=== PATIENT | female | born 1945 | race Caucasian/White ===

== ENCOUNTER 2017-02-23 09:55 | Inpatient (IN) ==
[2017-02-23] MEDS ORDERED: Ibuprofen 200 MG TABLET PO PRN (15:45)
[2017-02-23] MEDS ORDERED: *HR* OxyCODONE Immed Rel 5 MG TABLET PO PRN (15:45)
[2017-02-23] MEDS: *HR* OxyCODONE Immed Rel 5 MG TABLET PO PRN (22:20)
[2017-02-23] MEDS: Ibuprofen 200 MG TABLET PO SCH (22:27)
[2017-02-24 00:16] LABS: Bilirubin,Urine Negative (Negative); Blood,Urine Trace-intact (Negative); Clarity,Urine Clear (Clear); Color,Urine Yellow (Yellow); Glucose,Urine (UA) Normal (Normal); Ketones,Urine Trace mg/dL (Negative); Leukocyte Esterase,Urine Negative (Negative); Nitrite,Urine Negative (Negative); PH,Urine 7.5 pH Units (5.0-8.0); Protein,Urine Negative (Neg-Trace); Specific Gravity,Urine 1.015 (1.010-1.025); Urobilinogen,Urine Normal (Normal)
[2017-02-24 00:26] LABS: RBC,Urine 0-3 per hpf (0-3); Squamous Epithelial Cell,Urine Few per lpf (None-Few); WBC,Urine 0-3 per hpf (0-3)
[2017-02-24 00:27] LABS: Bacteria,Urine Few per hpf (None-Few); Yeast,Urine Many per hpf (None Seen)
[2017-02-24] MEDS: Ibuprofen 200 MG TABLET PO SCH ×3 (00:53→09:55)
[2017-02-24 05:29] LABS: Basophils # 0.1 K/mcL (0.0-0.2); Basophils % 0.5 %; Eosinophils # 0.2 K/mcL (0.0-0.6); Eosinophils % 2.3 %; Hematocrit 31.3 % (35.3-44.9); Hemoglobin 10.7 g/dL (11.5-15.4); Immature Granulocytes % 2.9 % (0-4); Lymphocytes # 1.4 K/mcL (0.6-4.6); Lymphocytes % 13.6 %; Mean Corpuscular HGB Conc 34.2 g/dL (31.6-35.5); Mean Corpuscular Hemoglobin 30.8 pg (28.0-33.3); Mean Corpuscular Volume 90.2 fL (83.0-100.0); Mean Platelet Volume 9.9 fL (9.4-12.4); Monocytes # 1.7 K/mcL (0.0-1.3); Monocytes % 15.6 %; Neutrophils # 6.9 K/mcL (1.6-8.9); Nucleated Red Blood Cells 0.3 /100 WBC (0); Platelet Count 256 K/mcL (140-400); Red Blood Count 3.47 M/mcL (3.82-4.97); Red Cell Distribution Width 13.4 % (11.5-14.5); Segmented Neutrophils % 65.1 %
[2017-02-24 05:42] LABS: BUN/Creatinine Ratio 13 (6-26); Blood Urea Nitrogen 7 mg/dL (7-20); Carbon Dioxide 22 mEq/L (19-29); Chloride 102 mEq/L (98-109); Glucose 128 mg/dL (70-99); Osmolality,Calculated 282 (280-300); Potassium 3.8 mEq/L (3.5-4.5); Sodium 136 mEq/L (136-145); eGFR For African Americans > 60 (> 60); eGFR For Non-African Americans > 60 (> 60)
[2017-02-24] MEDS: *HR* OxyCODONE Immed Rel 5 MG TABLET PO PRN ×3 (06:03→17:34)
[2017-02-24] MEDS: Multivit/Ca/Min/Fe/FA 1 TAB TABLET PO SCH (09:55)
[2017-02-24] MEDS: Aspirin Enteric Coated 325 MG Tablet PO SCH (09:55)
--- NOTE | 2017-02-24 11:23 | Internal Med History&Physical ---
Date of Encounter: 02/24/17 Time of Encounter: 11:18 Assessment and Plan (1) Acute blood loss anemia Current visit: Yes Status: Acute H/H is stable . pt states that she had hx of GERD as well and had EGD will need to review records Avoid NSAID at the present time Add PPI (2) Status post total knee replacement, left Current visit: Yes Status: Acute stable Wound is healing well . Continue present pain Pain control (3) Arthritis of knee, left Current visit: No Status: Chronic stable Pain control as needed (4) HLD (hyperlipidemia) Current visit: No Status: Chronic Stable Qualifiers: Hyperlipidemia type: pure hypercholesterolemia Qualified Code(s): E78.00 - Pure hypercholesterolemia, unspecified; E78.0 - Pure hypercholesterolemia (5) HTN (hypertension) Current visit: No Status: Chronic stable no new change Continue present meds Qualifiers: Hypertension type: essential hypertension Qualified Code(s): I10 - Essential (primary) hypertension (6) Thyroid disease Current visit: No Status: Chronic TSH ordered stable (7) Urinary obstruction Current visit: Yes Status: Acute Pt has large post void urine as she was complaining of pain in her lower abdomen . Intermittent cath was done . There was some difficulty per nursing staff and they had to use a small size catheter. Apparently she had similar difficulty at [facility] as well . Will conitnue to follow .She might have stricture ,in addition to neurogencity due to opoid use . Will follow and if needed refer to urology for further assessment Internal Medicine - H&P: HPI Chief complaint: knee replacement left side Admitted From: Hospital to Hospital Transfer ([facility]) History of present illness: Ms. Acuña is a 72 year old female with significant hx of HTN Hypothyroid DJD admitted to rehab for therapy after left knee replacement . her surgery was complicated with nausea and vomiting and anemia which was related to surgery. Pt states that she had an EGD as well . Denies any complain of voitng or nausea at the present time . She denies any fever or chill .She has been complaining of pain lower abdomen. which has been present since surgery . She is having difficulty in emptying her bladder . No dysueria , blood in urine NO diarrhea or blood in stool Denies any chest pain , SOB palpitation or orthopnea .Her pain is reasonable well controlled. No complains of any focal weakness. Past Med Surg Social Fam HX - Past Medical History Medical history: arthritis, hyperlipidemia, hypertension, thyroid disease Psychiatric history: no psych history - Social History Smoking Status: Never smoker Smokeless Tobacco Status: No Alcohol use: none Drug use: none Internal Medicine - H&P: Meds Aspirin Enteric Coated [Aspirin EC] 325 mg PO DAILY #21 tablet. 02/12/17 [Rx] Ibuprofen [Motrin] 200 mg PO Q4-6H PRN 02/15/17 [History] Levothyroxine Sodium [Levoxyl] 50 mcg PO 0630 02/15/17 [History] Lisinopril [Zestril] 10 mg PO DAILY 02/15/17 [History] Lovastatin [Mevacor] 20 mg PO DAILY 02/15/17 [History] Mv-Mn/FA/Vit K/Lycop/Lut/Coq10 [Daily Multivitamin Capsule] 1 tab PO DAILY 02/15 [History] OxyCODONE Immed Rel [Roxicodone 5 MG] 5 mg PO Q6HR PRN 02/23/17 [History] 3 Allergy/AdvReac Type Severity Reaction Status Date / Time tramadol Allergy Nausea Verified 02/15/17 11:41 All Systems PM: A 10-system review of systems was performed and is negative for pertinent findings except as documented above in the HPI. - Constitutional Constitutional: no anorexia, no chills, no excessive sweating, no fever(s), no falls, no lethargy, no malaise, no night sweats - EENT Eyes: no diplopia, no discharge, no dry eye, no loss of vision, no pain, no photophobia, no seeing flashes Ears: no ear discharge, no ear pain Nose, mouth and throat: no bleeding gums, no dry mouth, no dysphagia, no epistaxis, no mouth lesions, no mouth pain, no post-nasal drip, no sinus pain, no sinus pressure, no sore throat - Breasts Breasts: no mass, no pain - Cardiovascular Cardiovascular ROS IM: no chest pain, no claudication, no diaphoresis, no dyspnea, no dyspnea on exertion, no lightheadedness, no orthopnea, no palpitations, no paroxysmal nocturnal dyspnea, no syncope - Respiratory Respiratory: no dyspnea, no hemoptysis, no dyspnea on exertion, no wheezing, no snoring, no pain on inspiration, no chest congestion, no excessive phlegm production, no change in phlegm color, no pain with cough - Gastrointestinal Gastrointestinal: heartburn (occasional ), no belching, no bloating, no change in bowel habits, no change in stool character, no coffee ground emesis, no constipation, no cramping, no diarrhea, no dyspepsia, no hematemesis, no loose stools - Genitourinary Genitourinary: post void dribbling, urinary frequency, urinary hesitancy, urinary urgency, no nocturia Additional comments: not able to empty bladder completely Menstruation: post hysterectomy - Musculoskeletal Musculoskeletal ROS IM: arthralgias, no back pain, no joint swelling, no muscle weakness, no myalgias, no numbness, no stiffness - Neurological Neurological ROS: no burning sensations, no confusion, no convulsions, no dizziness, no focal weakness, no frequent falls, no headache(s), no numbness, no restless legs - Psychiatric Psychiatric: no hallucinations, no homicidal ideation, no suicidal ideation - Constitutional Vitals: Temp Pulse Resp BP Pulse Ox 98.2 F 85 16 115/72 94 02/24/17 10:49 02/24/17 10:49 02/24/17 10:49 02/24/17 10:49 02/24/17 10:49 General appearance: Present: cooperative, A&O X 3, pleasant, no acute distress. Absent: severe distress - Head Head exam: Present: atraumatic - Eye Eye exam: Present: EOMI, PERRL. Absent: periorbital swelling, scleral icterus, conjuntiva pink - ENT ENT exam: Present: mucous membranes moist - Neck Neck exam general surgery: Present: full ROM, supple. Absent: tenderness, nuchal rigidity - Respiratory Respiratory exam: Present: CTAB. Absent: chest wall tenderness, decreased breath sounds, respiratory distress, rhonchi, stridor, wheezes, tachypnea - Cardiovascular Cardiovascular exam: Present: RRR. Absent: diastolic murmur, distant heart sounds, gallop, irregular rhythm, JVD Additional comments: no mummer appreciated - GI/Abdominal GI/Abdominal exam: Present: normal bowel sounds, soft, tenderness. Absent: diminished bowel sounds, guarding, hernia, pulsatile mass, rebound, rigid Additional comments: lower abdomen mild , no rebound BS ++ - Rectal Rectal exam: Present: deferred - Extremities Exam Extremities exam: Present: pedal edema. Absent: tenderness, warm Additional comments: + pitting on the left side otherwise normal . Left is surgical site - Incison Incision: Present: clean and dry - Back Exam Back exam: Present: normal inspection. Absent: CVA tenderness (L), CVA tenderness (R), muscle spasm, tenderness, vertebral tenderness - Neurological Exam Neurological exam: Present: alert, CN II-XII intact, oriented X3, no focal deficits, strengths equal and symetr throughout. Absent: facial droop, speech deficit - Psychiatric Psychiatric exam: Present: normal affect, normal mood Internal Med - H&P Results - Labs CBC & Chem 7: 02/24/17 05:00 02/24/17 05:00 Labs: Short CBC 02/24/17 Range/Units 05:00 WBC 10.6 (4.3-11.1) K/mcL Hgb 10.7 L (11.5-15.4) g/dL Hct 31.3 L (35.3-44.9) % Plt Count 256 (140-400) K/mcL Neutrophils # 6.9 (1.6-8.9) K/mcL BMP 02/24/17 05:00 Sodium 136 Potassium 3.8 Chloride 102 Carbon Dioxide 22 BUN 7 Creatinine 0.56 L Glucose 128 H Calcium 9.0 Urine 02/24/17 Range/Units 00:01 Urine Color Yellow (Yellow) Urine Clarity Clear (Clear) Urine pH 7.5 (5.0-8.0) pH Units Ur Specific [place] 1.015 (1.010-1.025) Urine Protein Negative (Neg-Trace) mg/dL Urine Glucose (UA) Normal (Normal) mg/dL - VTE Documentation of Mechanical Device: Graduated compression elastic hosiery
[2017-02-24 15:14] LABS: Thyroid Stimulating Hormone 3.024 mcIU/mL (0.350-4.840)
[2017-02-24] MEDS: Acetaminophen 325 MG TABLET PO SCH (20:54)
[2017-02-25] MEDS: *HR* OxyCODONE Immed Rel 5 MG TABLET PO PRN ×4 (02:28→21:34)
--- NOTE | 2017-02-25 06:48 | Internal Med Progress Note ---
Date of Encounter: 02/25/17 Time of Encounter: 06:46 - Assessment and plan (1) Acute blood loss anemia Current Visit: Yes Status: Acute Assessment and plan: stable at the present no new change (2) Status post total knee replacement, left Current Visit: Yes Status: Acute Assessment and plan: stable pain well controlled (3) HLD (hyperlipidemia) Current Visit: No Status: Chronic Assessment and plan: stable on meds Qualifiers: Hyperlipidemia type: pure hypercholesterolemia Qualified Code(s): E78.00 - Pure hypercholesterolemia, unspecified; E78.0 - Pure hypercholesterolemia (4) HTN (hypertension) Current Visit: No Status: Chronic Assessment and plan: stable continue meds as before Qualifiers: Hypertension type: essential hypertension Qualified Code(s): I10 - Essential (primary) hypertension (5) Thyroid disease Current Visit: No Status: Chronic Assessment and plan: Stable (6) Urinary obstruction Current Visit: Yes Status: Acute Assessment and plan: Getting better slowly she is having less retention . Most likely du to opoids - Subjective Interval history: Sleeping good .No new complains No complains of lower abdominal pain as she has been complaining of urinary retention but it seems to be getting better - Constitutional Vitals: Temp Pulse Resp BP Pulse Ox 98.4 F 87 14 100/54 95 02/24/17 20:35 02/24/17 20:35 02/24/17 20:35 02/24/17 20:35 02/24/17 20:35 General appearance: Present: cooperative, A&O X 3, pleasant, no acute distress. Absent: severe distress - Head Head exam: Present: normal inspection - Eye Eye exam: Present: EOMI, PERRL. Absent: scleral icterus Pupils: Present: PERRL - Neck Neck exam general surgery: Present: full ROM, supple. Absent: tenderness, nuchal rigidity - Respiratory Respiratory exam: Present: CTAB. Absent: accessory muscle use, chest wall tenderness, decreased breath sounds, respiratory distress, rhonchi, stridor, wheezes, tachypnea - Cardiovascular Cardiovascular exam: Present: RRR. Absent: diastolic murmur, irregular rhythm, JVD, systolic murmur - GI/Abdominal GI/Abdominal exam: Present: normal bowel sounds, soft. Absent: distended, firm , guarding, hepatomegaly, rebound, rigid, tenderness - Extremities Exam Extremities exam: Absent: pedal edema, tenderness - Incison Incision: Present: clean and dry - Neurological Exam Neurological exam: Present: alert, CN II-XII intact, oriented X3, no focal deficits. Absent: facial droop, speech deficit Internal Medicine: Result - Labs CBC & Chem 7: 02/24/17 05:00 02/24/17 05:00 - VTE Documentation of Mechanical Device: Graduated compression elastic hosiery Consult Discharge Plan - Plan Referrals: Catalina Kong MD [Primary Care Provider] -
[2017-02-25] MEDS: Multivit/Ca/Min/Fe/FA 1 TAB TABLET PO SCH (08:53)
[2017-02-25] MEDS: Acetaminophen 325 MG TABLET PO SCH ×3 (08:54→21:35)
[2017-02-25] MEDS: Aspirin Enteric Coated 325 MG Tablet PO SCH (08:55)
[2017-02-26] MEDS: *HR* OxyCODONE Immed Rel 5 MG TABLET PO PRN ×3 (05:34→19:59)
[2017-02-26] MEDS: Aspirin Enteric Coated 325 MG Tablet PO SCH (09:16)
[2017-02-26] MEDS: Multivit/Ca/Min/Fe/FA 1 TAB TABLET PO SCH (09:16)
[2017-02-26] MEDS: Acetaminophen 325 MG TABLET PO SCH ×3 (09:17→17:29)
--- NOTE | 2017-02-26 09:30 | Internal Med Progress Note ---
Date of Encounter: 02/26/17 Time of Encounter: 09:28 - Assessment and plan (1) Acute blood loss anemia Current Visit: Yes Status: Acute Assessment and plan: h/h stable no new issues continue present management (2) Status post total knee replacement, left Current Visit: Yes Status: Acute Assessment and plan: stable no new change pain is well controlled (3) HLD (hyperlipidemia) Current Visit: No Status: Chronic Qualifiers: Hyperlipidemia type: pure hypercholesterolemia Qualified Code(s): E78.00 - Pure hypercholesterolemia, unspecified; E78.0 - Pure hypercholesterolemia (4) HTN (hypertension) Current Visit: No Status: Chronic Assessment and plan: stable continue present management Qualifiers: Hypertension type: essential hypertension Qualified Code(s): I10 - Essential (primary) hypertension (5) Thyroid disease Current Visit: No Status: Chronic (6) Urinary obstruction Current Visit: Yes Status: Acute Assessment and plan: passing urine much better continue to monitor - Subjective Interval history: S No new complains no chest pain SOB or palpitation Passing urine well - Constitutional Vitals: Temp Pulse Resp BP Pulse Ox 98.3 F 75 16 114/73 94 02/26/17 07:45 02/26/17 07:45 02/26/17 07:45 02/26/17 07:45 02/26/17 07:45 General appearance: Present: cooperative, A&O X 3, morbidly obese, pleasant, no acute distress. Absent: severe distress - Eye Eye exam: Present: EOMI, PERRL, conjuntiva pink. Absent: scleral icterus Pupils: Present: PERRL - Neck Neck exam general surgery: Present: supple. Absent: tenderness, nuchal rigidity - Respiratory Respiratory exam: Present: CTAB. Absent: chest wall tenderness, respiratory distress, rhonchi, stridor, wheezes, tachypnea - Cardiovascular Cardiovascular exam: Present: RRR, +S1, +S2. Absent: gallop, irregular rhythm, JVD - GI/Abdominal GI/Abdominal exam: Present: normal bowel sounds, soft. Absent: distended, guarding, hepatomegaly, pulsatile mass, rebound, rigid, splenomegaly, tenderness - Extremities Exam Extremities exam: Absent: pedal edema, tenderness - Neurological Exam Neurological exam: Present: CN II-XII intact, oriented X3. Absent: facial droop , speech deficit Additional comments: no new change stable Internal Medicine: Result - Labs CBC & Chem 7: 02/24/17 05:00 02/24/17 05:00 - VTE Documentation of Mechanical Device: Graduated compression elastic hosiery Consult Discharge Plan - Plan Referrals: Catalina Kong MD [Primary Care Provider] -
[2017-02-27] MEDS: Multivit/Ca/Min/Fe/FA 1 TAB TABLET PO SCH (08:42)
[2017-02-27] MEDS: Acetaminophen 325 MG TABLET PO SCH ×3 (08:42→21:40)
[2017-02-27] MEDS: Aspirin Enteric Coated 325 MG Tablet PO SCH (08:43)
--- NOTE | 2017-02-27 09:32 | Internal Med Progress Note ---
Date of Encounter: 02/27/17 Time of Encounter: 09:27 - Assessment and plan (1) Acute blood loss anemia Current Visit: Yes Status: Acute Assessment and plan: stable on iron supplement (2) Status post total knee replacement, left Current Visit: Yes Status: Acute Assessment and plan: pain is well controlled stable Constipated due t meds . PRN enema . on Colace etc (3) HLD (hyperlipidemia) Current Visit: No Status: Chronic Assessment and plan: stable Qualifiers: Hyperlipidemia type: pure hypercholesterolemia Qualified Code(s): E78.00 - Pure hypercholesterolemia, unspecified; E78.0 - Pure hypercholesterolemia (4) HTN (hypertension) Current Visit: No Status: Chronic Assessment and plan: stable continue resent medications Qualifiers: Hypertension type: essential hypertension Qualified Code(s): I10 - Essential (primary) hypertension (5) Thyroid disease Current Visit: No Status: Chronic Assessment and plan: stable (6) Urinary obstruction Current Visit: Yes Status: Acute Assessment and plan: improved a lot she is able to urinate now post void is getting lesser and lesser - Subjective Interval history: Sfeels constipated . meds have not worked so far otherwise no complains no fever or chills eating ok - Constitutional Vitals: Temp Pulse Resp BP Pulse Ox 97.8 F 84 16 120/75 94 02/27/17 07:00 02/27/17 07:00 02/27/17 07:00 02/27/17 07:00 02/27/17 07:00 General appearance: Present: cooperative, A&O X 3, morbidly obese, pleasant, no acute distress. Absent: severe distress - Head Head exam: Present: atraumatic - Eye Eye exam: Present: EOMI, PERRL, scleral icterus. Absent: conjunctival injection , periorbital swelling, conjuntiva pink - Neck Neck exam general surgery: Present: full ROM, supple. Absent: tenderness, nuchal rigidity - Respiratory Respiratory exam: Present: CTAB. Absent: accessory muscle use, decreased breath sounds, rales, respiratory distress, rhonchi, stridor, wheezes, tachypnea - Cardiovascular Cardiovascular exam: Present: RRR, +S1, +S2. Absent: gallop, JVD, tachycardia - GI/Abdominal GI/Abdominal exam: Present: normal bowel sounds, soft. Absent: distended, firm , guarding, hepatomegaly, rigid, splenomegaly Additional comments: owel sounds are normal no tenderness - Extremities Exam Extremities exam: Absent: calf tenderness, pedal edema, tenderness - Incison Incision: Present: clean and dry. Absent: draining, red - Neurological Exam Neurological exam: Present: CN II-XII intact, oriented X3, no focal deficits, strengths equal and symetr throughout. Absent: facial droop, speech deficit Internal Medicine: Result - Labs CBC & Chem 7: 02/24/17 05:00 02/24/17 05:00 - VTE Documentation of Mechanical Device: Graduated compression elastic hosiery Consult Discharge Plan - Plan Referrals: Catalina Kong MD [Primary Care Provider] -
[2017-02-28] MEDS: Multivit/Ca/Min/Fe/FA 1 TAB TABLET PO SCH (09:31)
[2017-02-28] MEDS: Aspirin Enteric Coated 325 MG Tablet PO SCH (09:31)
[2017-02-28] MEDS: Acetaminophen 325 MG TABLET PO SCH ×2 (09:31→14:45)
--- NOTE | 2017-02-28 14:12 | Internal Med Progress Note ---
Date of Encounter: 02/28/17 Time of Encounter: 15:00 - Assessment and plan (1) Status post total knee replacement, left Current Visit: Yes Status: Acute Assessment and plan: Working with the therapist - Time Spent With Patient less than 15 minutes - Subjective Interval history: Working with therapists. - Constitutional Vitals: Temp Pulse Resp BP Pulse Ox 98.1 F 68 16 101/54 93 02/28/17 07:00 02/28/17 07:00 02/28/17 07:00 02/28/17 07:00 02/28/17 07:00 General appearance: Present: cooperative, A&O X 3, morbidly obese, pleasant, no acute distress. Absent: severe distress - Head Head exam: Present: atraumatic, normocephalic - Respiratory Respiratory exam: Present: CTAB. Absent: accessory muscle use, rales, rhonchi, wheezes - Cardiovascular Cardiovascular exam: Present: RRR, +S1, +S2. Absent: diastolic murmur, gallop, rubs, systolic murmur Internal Medicine: Result - Labs CBC & Chem 7: 02/24/17 05:00 02/24/17 05:00 Labs: ab is generally stable lab. - VTE Documentation of Mechanical Device: Graduated compression elastic hosiery Consult Discharge Plan - Plan Referrals: Catalina Kong MD [Primary Care Provider] -
[2017-03-01] MEDS: Multivit/Ca/Min/Fe/FA 1 TAB TABLET PO SCH (08:48)
[2017-03-01] MEDS: *HR* OxyCODONE Immed Rel 5 MG TABLET PO PRN ×2 (08:48→19:49)
[2017-03-01] MEDS: Aspirin Enteric Coated 325 MG Tablet PO SCH (08:49)
--- NOTE | 2017-03-01 14:43 | Internal Med Progress Note ---
Date of Encounter: 03/01/17 Time of Encounter: 14:40 - Assessment and plan (1) Status post total knee replacement, left Current Visit: Yes Status: Acute Assessment and plan: Moving slowly please see PT OT at the ER notes. - Time Spent With Patient less than 15 minutes - Subjective Interval history: Therapy report reports are moving very slowly and can impunity still weak - Constitutional Vitals: Temp Pulse Resp BP Pulse Ox 97.9 F 78 16 130/76 95 03/01/17 07:00 03/01/17 12:58 03/01/17 12:58 03/01/17 12:58 03/01/17 12:58 General appearance: Present: cooperative, A&O X 3, morbidly obese, pleasant, no acute distress. Absent: severe distress - Head Head exam: Present: atraumatic, normocephalic - Neck Neck exam general surgery: Present: supple, trachea midline. Absent: lymphadenopathy - Respiratory Respiratory exam: Present: CTAB. Absent: accessory muscle use, rales, rhonchi, wheezes - Cardiovascular Cardiovascular exam: Present: RRR, +S1, +S2. Absent: diastolic murmur, gallop, rubs, systolic murmur Internal Medicine: Result - Labs CBC & Chem 7: 02/24/17 05:00 02/24/17 05:00 Labs: Lab is stable - VTE Documentation of Mechanical Device: Graduated compression elastic hosiery Consult Discharge Plan - Plan Referrals: Catalina Kong MD [Primary Care Provider] -
[2017-03-01] MEDS ORDERED: Acetaminophen 325 MG TABLET PO PRN (17:29)
[2017-03-02 07:25] VITALS: BP 111/56
[2017-03-02] MEDS: *HR* OxyCODONE Immed Rel 5 MG TABLET PO PRN ×2 (08:45→14:44)
[2017-03-02] MEDS: Aspirin Enteric Coated 325 MG Tablet PO SCH (08:46)
[2017-03-02] MEDS: Multivit/Ca/Min/Fe/FA 1 TAB TABLET PO SCH (08:46)
--- NOTE | 2017-03-02 13:22 | Discharge Summary ---
Date of Encounter: 03/02/17 Time of Encounter: 13:00 - Discharge Diagnosis (1) Status post total knee replacement, left Priority: Primary Status: Acute Comments: Progress is slow but the staff feels that her hospitalization has been maximized. Home today - Discharge Medications Home Medications: Aspirin Enteric Coated [Aspirin EC] 325 mg PO DAILY #21 tablet. 02/12/17 [Rx] Ibuprofen [Motrin] 200 mg PO Q4-6H PRN 02/15/17 [History] Levothyroxine Sodium [Levoxyl] 50 mcg PO 0630 02/15/17 [History] Lisinopril [Zestril] 10 mg PO DAILY 02/15/17 [History] Lovastatin [Mevacor] 20 mg PO DAILY 02/15/17 [History] Mv-Mn/FA/Vit K/Lycop/Lut/Coq10 [Daily Multivitamin Capsule] 1 tab PO DAILY 02/15 [History] OxyCODONE Immed Rel [Roxicodone 5 MG] 5 mg PO Q6HR PRN 02/23/17 [History] Allergies/Adverse Reactions: 3 Allergy/AdvReac Type Severity Reaction Status Date / Time tramadol Allergy Nausea Verified 02/15/17 11:41 Date of admission: 02/23/17 15:03 Primary care physician: Catalina Kong Consults: 02/23/17 15:42 Consult to Occupational Therapy [CONS] Routine Comment: eval Reason for Consult: eval Consult to Physical Therapy [CONS] Routine Comment: eval Reason for Consult: eval Consult to Recreational Therapy [CONS] Routine Comment: Consult to Teacher Emotionally Impaired [CONS] Routine Reason for SW Consult: d/c planning Discharging clinician: Basilio Porras Anticipated date of discharge: 03/02/17 - Patient Status Disposition: Home Health Service Condition: Good Functional capacity at discharge: uses cane/walker Overall status at discharge: patient is progressing back to baseline - Discharge Instructions Follow Up With: Catalina Kong MD [Primary Care Provider] - - Diet and Activity Activity: ambulate only with your walker Diet: advance to your usual diet Interval History: She was sent after left total knee replacement. She also was anemic. Appeared to be postop complication that was dressed. Hospital course: Ms. Acuña is a 72 year old female - Time Spent with Patient Total time spent providing and/or coordinating discharge services: - Constitutional Vitals: Temp Pulse Resp BP Pulse Ox 98.1 F 82 16 111/56 96 03/02/17 07:23 03/02/17 07:23 03/02/17 07:23 03/02/17 07:03/02/17 07:23 General appearance: Present: cooperative, A&O X 3, morbidly obese, pleasant, no acute distress. Absent: severe distress - Head Head exam: Present: atraumatic, normocephalic - Neck Neck exam general surgery: Present: supple, trachea midline. Absent: lymphadenopathy - Respiratory Respiratory exam: Present: CTAB. Absent: accessory muscle use, rales, rhonchi, wheezes - Cardiovascular Cardiovascular exam: Present: RRR, +S1, +S2. Absent: diastolic murmur, gallop, rubs, systolic murmur - VTE Documentation of Mechanical Device: Graduated compression elastic hosiery
--- NOTE | 2017-03-02 13:25 | Physician Discharge Referral ---
Home Health/Hosp Referral Info Transfer to: Home Health Provider in Charge Post Discharge: PCP - Diagnosis (1) Status post total knee replacement, left Priority: Primary Status: Acute - Respiratory Orders Smoking Cessation: Smoking cessation has been advised. For more information, call the [place] Tobacco Quit Line at 5-783-HLHP-NOW. - Transfer Medications Home Medications: Aspirin Enteric Coated [Aspirin EC] 325 mg PO DAILY #21 tablet. 02/12/17 [Rx] Ibuprofen [Motrin] 200 mg PO Q4-6H PRN 02/15/17 [History] Levothyroxine Sodium [Levoxyl] 50 mcg PO 0630 02/15/17 [History] Lisinopril [Zestril] 10 mg PO DAILY 02/15/17 [History] Lovastatin [Mevacor] 20 mg PO DAILY 02/15/17 [History] Mv-Mn/FA/Vit K/Lycop/Lut/Coq10 [Daily Multivitamin Capsule] 1 tab PO DAILY 02/15 [History] OxyCODONE Immed Rel [Roxicodone 5 MG] 5 mg PO Q6HR PRN 02/23/17 [History] Allergies/Adverse Reactions: 3 Allergy/AdvReac Type Severity Reaction Status Date / Time tramadol Allergy Nausea Verified 02/15/17 11:41 Certification: Further, I certify that my clinical findings support that this patient is homebound (i.e. absences from home require considerable and taxing effort and are for medical reasons or protestant services or infrequently or short duration when for other reasons) because: Homebound Reason: Patient requires assistance of a person or device to safely leave home Attestation: My signature below is to certify that this patient is under my care and that I, or nurse practitioner, or a physician's dyer assistant working with me, has a face-to -face encounter with this patient.
== END 2017-03-02 14:50 | disposition home health service (06) | DRG 560 ==
LOC: INPGRE 15:03
PROVIDERS: ADMIT Internal Medicine; ATTEND Internal Medicine